=== PATIENT | male | born 1945 | race Caucasian/White ===

== ENCOUNTER 2017-06-29 20:59 | Emergency (ER) | payer SELFPAY ==
[~2017-06-29] VITALS: Ht 172.7 cm; Wt 93.6 kg
[2017-06-29 21:14] VITALS: BP 153/70; PULSE 112; RESP 20; TEMP 102.4; O2SAT 96
[2017-06-29 21:25] VITALS: BP 153/70; PULSE 112; RESP 20; TEMP 102.4; O2SAT 96
[2017-06-29] MEDS ORDERED: PHEN100C PO (21:37)
[2017-06-29] MEDS ORDERED: CITA20TA4 PO (21:42)
[2017-06-29] MEDS ORDERED: ISOS20TA PO (21:42)
[2017-06-29] MEDS ORDERED: CLOP75TA PO (21:42)
[2017-06-29] MEDS ORDERED: CILO50TA PO (21:42)
[2017-06-29] MEDS ORDERED: SIMV40TA PO (21:42)
[2017-06-29] MEDS ORDERED: PROP20TA3 PO (21:42)
[2017-06-29] MEDS ORDERED: SODIUM CHLOR 0.9% 1000 ML INJ 1,000 ML IV SCH (21:53)
[2017-06-29] MEDS ORDERED: METOCLOPRAMIDE HCL 10 MG/2 ML VIAL IV PUSH ONE (22:00)
[2017-06-29] MEDS ORDERED: SODIUM CHLORIDE 0.9% FLUSH 10 ML FLUSH IV FLUSH PRN (22:00)
[2017-06-29 22:20] VITALS: RESP 16; O2SAT 97
--- NOTE | 2017-06-29 22:23 | PD ---
HPI Chief Complaint: Fever Time Seen by Provider: 21:35 Travel History International Travel<30 days: No Contact w/Intl Traveler<30days: No Traveled to known affect area: No History of Present Illness HPI 72-year-old male here for evaluation of fever, nausea, cough, headache. Patient has had a fever for the last couple of days. He developed retro- orbital pain today. Pain is 7 out of 10, described as pressure, constant. He feels nauseous but has not vomited. Cough is productive of yellowish sputum. No hemoptysis. He denies chest pain or dyspnea. Patient is having intermittent bilateral flank pain and pain across his anterior abdomen. Currently his abdomen is pain-free. PFSH Past Medical History Cardiac Catheterization: Yes (STENT X 2, ANGIOPLASTY) Cardiovascular Problems: Yes Tetanus Vaccination: < 5 Years Influenza Vaccination: No Social History Alcohol Use: No Tobacco Use: No Substance Use: No Allergies-Medications (Allergen,Severity, Reaction): Coded Allergies: No Known Allergies (Unverified , 06/29/17) Reported Meds & Prescriptions Reported Meds & Active Scripts Active Tamiflu (Oseltamivir Phosphate) 75 Mg Cap 75 Mg PO BID 5 Days Reported Isosorbide Mononitrate 20 Mg Tab 20 Mg PO BID Take 2 doses 7 hours apart. Simvastatin 40 Mg Tab 40 Mg PO HS Propranolol (Propranolol HCl) 20 Mg Tab 20 Mg PO DAILY Citalopram (Citalopram Hydrobromide) 20 Mg Tab 20 Mg PO DAILY Clopidogrel (Clopidogrel Bisulfate) 75 Mg Tab 75 Mg PO DAILY Cilostazol 50 Mg Tab 50 Mg PO BID Phenytoin Extended 100 Mg Cap 100 Mg PO DAILY Review of Systems Except as stated in HPI: all other systems reviewed are Neg Physical Exam Narrative GENERAL: Well-developed, well-nourished, awake, alert, no apparent distress. SKIN: Focused skin assessment warm/dry. HEAD: Atraumatic. Normocephalic. EYES: Pupils equal, round, 3 mm, reactive to light. EOMI. No proptosis. No scleral icterus. No injection or drainage. ENT: No nasal bleeding or discharge. Mucous membranes pink and dry. NECK: Trachea midline. No JVD. No nuchal rigidity. CARDIOVASCULAR: Regular rate and rhythm. No murmur appreciated. RESPIRATORY: No accessory muscle use. Clear to auscultation. Breath sounds equal bilaterally. GASTROINTESTINAL: Abdomen soft, non-tender, nondistended. MUSCULOSKELETAL: No obvious deformities. No clubbing. No cyanosis. No edema. NEUROLOGICAL: Awake and alert. No obvious cranial nerve deficits. Motor grossly within normal limits. Normal speech. PSYCHIATRIC: Appropriate mood and affect; insight and judgment normal. Data Data Last Documented VS Vital Signs Date Time Temp Pulse Resp B/P (MAP) Pulse Ox O2 Delivery O2 Flow Rate FiO2 06/29/17 23:26 99.2 92 16 132/78 (96) 98 Room Air Orders Orders Complete Blood Count With Diff (06/29/17 21:53) Comprehensive Metabolic Panel (06/29/17 21:53) Lipase (06/29/17 21:53) Prothrombin Time / Inr (Pt) (06/29/17 21:53) Act Partial Throm Time (Ptt) (06/29/17 21:53) Urinalysis - C+S If Indicated (06/29/17 21:53) Iv Access Insert/Monitor (06/29/17 21:53) Ecg Monitoring (06/29/17 21:53) Oximetry (06/29/17 21:53) Sodium Chlor 0.9% 1000 Ml Inj (Ns 1000 M (06/29/17 21:53) Sodium Chloride 0.9% Flush (Ns Flush) (06/29/17 22:00) Influenzae A/B Antigen (06/29/17 21:53) Metoclopramide Inj (Reglan Inj) (06/29/17 22:00) Acetaminophen (Tylenol) (06/29/17 22:30) Chest, Single Ap (06/29/17 ) Sodium Chlor 0.9% 1000 Ml Inj (Ns 1000 M (06/29/17 23:00) Oseltamivir (Tamiflu) (06/29/17 23:15) Oseltamivir (Tamiflu) (06/29/17 23:15) Ketorolac Inj (Toradol Inj) (06/29/17 23:15) Labs Laboratory Tests Test 06/29/17 22:20 White Blood Count 8.8 TH/MM3 Red Blood Count 5.02 MIL/MM3 Hemoglobin 14.6 GM/DL Hematocrit 43.3 % Mean Corpuscular Volume 86.3 FL Mean Corpuscular Hemoglobin 29.0 PG Mean Corpuscular Hemoglobin Concent 33.6 % Red Cell Distribution Width 12.0 % Platelet Count 175 TH/MM3 Mean Platelet Volume 8.9 FL Neutrophils (%) (Auto) 80.4 % Lymphocytes (%) (Auto) 5.6 % Monocytes (%) (Auto) 12.8 % Eosinophils (%) (Auto) 1.0 % Basophils (%) (Auto) 0.2 % Neutrophils # (Auto) 7.1 TH/MM3 Lymphocytes # (Auto) 0.5 TH/MM3 Monocytes # (Auto) 1.1 TH/MM3 Eosinophils # (Auto) 0.1 TH/MM3 Basophils # (Auto) 0.0 TH/MM3 CBC Comment DIFF FINAL Differential Comment Prothrombin Time 10.5 SEC Prothromb Time International Ratio 1.0 RATIO Activated Partial Thromboplast Time 25.8 SEC Urine Color YELLOW Urine Turbidity CLEAR Urine pH 5.0 Urine Specific [place] 1.019 Urine Protein NEG mg/dL Urine Glucose (UA) NEG mg/dL Urine Ketones NEG mg/dL Urine Occult Blood MOD Urine Nitrite NEG Urine Bilirubin NEG Urine Leukocyte Esterase NEG Urine RBC 0-3 /hpf Urine WBC 0-2 /hpf Urine Squamous Epithelial Cells 0-5 /hpf Urine Mucus MOD /lpf Microscopic Urinalysis Comment CULT NOT INDICATED Blood Urea Nitrogen 13 MG/DL Creatinine 0.93 MG/DL Random Glucose 116 MG/DL Total Protein 7.1 GM/DL Albumin 3.5 GM/DL Calcium Level 8.7 MG/DL Alkaline Phosphatase 98 U/L Aspartate Amino Transf (AST/SGOT) 26 U/L Alanine Aminotransferase (ALT/SGPT) 25 U/L Total Bilirubin 0.5 MG/DL Sodium Level 136 MEQ/L Potassium Level 4.0 MEQ/L Chloride Level 101 MEQ/L Carbon Dioxide Level 27.2 MEQ/L Anion Gap 8 MEQ/L Estimat Glomerular Filtration Rate 79 ML/MIN Lipase 260 U/L [facility] Medical Decision Making Medical Screen Exam Complete: Yes Emergency Medical Condition: Yes Differential Diagnosis Influenza, URI, viral illness, metabolic abnormality, intracranial abnormality, intra-abdominal process, UTI, pyelonephritis, meningitis/encephalitis less likely Narrative Course Initial vital signs show heart rate 112, blood pressure 153/70, pulse ox 96% on room air, oral temp of 102.4F. CBC: WBC 8.8, hemoglobin 14.6, hematocrit 43.3, platelets 175, neutrophils 80.4% , lymphocytes 5.6%, and monocytes 12.8%. CMP is unremarkable. Lipase is 260. Influenza A+. UA: Moderate occult blood, moderate mucus, not suggestive of UTI. Chest x-ray: No acute cardiopulmonary disease demonstrated. Patient was given a liter of normal saline IV, Tylenol, and Reglan, and reports improved symptoms. He was given a dose of Tamiflu for the flu. There is no nuchal rigidity on exam. I believe the headache is most likely secondary to having the flu. I do not believe that there is an acute intracranial process, and therefore CT head was canceled. The patient also reports improved abdominal /flank discomfort. I believe that this was likely myalgias from having the flu , and do not believe that there is an acute intra-abdominal process as his abdominal exam is completely benign without peritoneal signs. CT abdomen pelvis was canceled. The patient and the patient's family agree with this. Patient feels well enough to go home. He will be discharged home with a prescription for Tamiflu. He was advised to stay hydrated with plenty of fluids and to keep fever under control by alternating between Tylenol and ibuprofen every 3-4 hours. He was informed on when to return to the emergency department. PMD follow-up this week. He verbalizes understanding and agreement with plan. Diagnosis Primary Impression: Influenza A Referrals: [facility] 3 days Primary Care Physician 3 days Additional Instructions: Follow-up with a primary care physician this week. Keep fever control by alternating between Tylenol and ibuprofen every 3-4 hours. Stay hydrated with plenty of fluids. Return to the emergency department for worsening symptoms or any other concerns. Scripts Ondansetron Odt (Zofran Odt) 4 Mg Tab 4 MG SL Q8HR Y for Nausea/Vomiting, #20 TAB 0 Refills Prov: Arturo Washington MD 06/29/17 Oseltamivir (Tamiflu) 75 Mg Cap 75 MG PO BID for Mgmt Viral Infection for 5 Days, #10 CAP 0 Refills Prov: Arturo Washington MD 06/29/17 Disposition: 01 DISCHARGE HOME Condition: Stable Arturo Washington MD Jun 29, 2017 22:23
[2017-06-29] MEDS ORDERED: ACETAMINOPHEN 325 MG TAB PO ONE (22:30)
[2017-06-29 22:40] LABS: BILIRUBIN, URINE NEG (NEG); BLOOD, URINE MOD (NEG); GLUCOSE,URINE NEG (NEG); KETONE, URINE NEG (NEG); NITRITE,URINE NEG (NEG); URINE LEUKOCYTE ESTERASE NEG (NEG)
[2017-06-29 22:47] LABS: URINE COLOR YELLOW (YELLW/STRAW)
[2017-06-29 22:48] LABS: MUCUS URINE MOD /lpf (OCC); RBC, URINE 0-3 /hpf (0-3); SQUAMOUS EPITHELIAL CELL URINE 0-5 /hpf (0-5); WBC, URINE 0-2 /hpf (0-5)
[2017-06-29 22:53] LABS: AUTOMATED NEUTROPHIL # 7.1 TH/MM3 (1.8-7.7); BASOPHIL % 0.2 % (0.0-2.0); EOSINOPHIL # 0.1 TH/MM3 (0-0.4); HEMATOCRIT 43.3 % (39.0-51.0); HEMOGLOBIN 14.6 GM/DL (13.0-17.0); LYMPH % 5.6 % (9.0-44.0); LYMPHOCYTE # 0.5 TH/MM3 (1.0-4.8); MEAN CELL VOLUME 86.3 FL (80.0-100.0); MEAN CORPUSCULAR HGB CONC 33.6 % (32.0-36.0); MEAN PLATELET VOLUME 8.9 FL (7.0-11.0); MONO % 12.8 % (0.0-8.0); MONOCYTE # 1.1 TH/MM3 (0-0.9); NEUT % 80.4 % (16.0-70.0); PLATELET COUNT 175 TH/MM3 (150-450); RED BLOOD COUNT 5.02 MIL/MM3 (4.50-5.90); WHITE BLOOD COUNT 8.8 TH/MM3 (4.0-11.0)
--- NOTE | 2017-06-29 22:55 | RADRPT ---
EXAM DATE/TIME: 06/29/2017 22:44 [place] COMPARISON: No previous studies available for comparison. INDICATIONS : Cough. MEDICAL HISTORY : None. SURGICAL HISTORY : Cardiac catheterization. ENCOUNTER: Initial ACUITY: 3 days PAIN SCORE: 0/10 LOCATION: Bilateral chest FINDINGS: A single view of the chest demonstrates the lungs to be symmetrically aerated without evidence of mas s, infiltrate or effusion. The cardiomediastinal contours are unremarkable. Osseous structures are intact. CONCLUSION: No acute cardiopulmonary disease demonstrated. Param Huggins MD on June 29, 2017 at 22:52 Board Certified Radiologist. This report was verified electronically.
[2017-06-29] MEDS ORDERED: SODIUM CHLOR 0.9% 1000 ML INJ 1,000 ML IV ONE (23:00)
[2017-06-29] MEDS ORDERED: OSELTAMIVIR PHOSPHATE 75 MG CAP PO ONE (23:00)
[2017-06-29 23:03] LABS: CHLORIDE 101 MEQ/L (98-107); SODIUM (NA) 136 MEQ/L (136-145)
[2017-06-29 23:07] LABS: ALBUMIN 3.5 GM/DL (3.4-5.0); BICARBONATE 27.2 MEQ/L (21.0-32.0); BLOOD UREA NITROGEN 13 MG/DL (7-18); CALCIUM 8.7 MG/DL (8.5-10.1); GLUCOSE,RANDOM 116 MG/DL (74-106); LIPASE 260 U/L (73-393)
[2017-06-29 23:08] LABS: PROTHROMBIN TIME - PATIENT 10.5 SEC (9.8-11.6)
[2017-06-29 23:10] LABS: ALT (GPT) 25 U/L (12-78); AST (GOT) 26 U/L (15-37); CREATININE 0.93 MG/DL (0.60-1.30); GLOMERULAR FILTRATION RATE 79 ML/MIN (>89)
[2017-06-29 23:12] LABS: TOTAL BILIRUBIN ADULT 0.5 MG/DL (0.2-1.0); TOTAL PROTEIN 7.1 GM/DL (6.4-8.2)
[2017-06-29 23:13] LABS: ALKALINE PHOSPHATASE 98 U/L (45-117)
[2017-06-29] MEDS ORDERED: OSELTAMIVIR PHOSPHATE 45 MG CAP PO ONE (23:15)
[2017-06-29] MEDS ORDERED: OSELTAMIVIR PHOSPHATE 30 MG CAP PO ONE (23:15)
[2017-06-29] MEDS ORDERED: KETOROLAC TROMETHAMINE 30 MG/ML (IVP) VIAL IV PUSH ONE (23:15)
[2017-06-29 23:26] VITALS: BP 132/78; PULSE 92; RESP 16; TEMP 99.2; O2SAT 98
[2017-06-29] MEDS ORDERED: OSEL75 PO (23:27)
[2017-06-29] MEDS ORDERED: ZOFR4TAB3 SL (23:38)
[2017-06-29 23:55] VITALS: RESP 16
== END 2017-06-30 00:04 | disposition home or self-care (01) ==
LOC: PHED 20:59
DX: J10.1 Influenza due to other identified influenza virus with other respiratory manifestations (principal); R05 Cough; R11.0 Nausea
CPT/HCPCS: 71045; 80053; 81001; 83690; 85025; 85610; 85730; 87804; 96361; 96374; 96375; 99284; J1885; J2765; J7030